=== PATIENT | male | born 2000 | race Caucasian/White ===

== ENCOUNTER 2021-07-11 11:48 | Emergency (ER) | payer OTHER, SELFPAY ==
[2021-07-11 12:16] VITALS: BP 109/63; PULSE 85; RESP 18; TEMP 37.3; O2SAT 100
--- NOTE | 2021-07-11 12:34 | ED.URI ---
HPI - URI/Sore Throat General Chief Complaint: Upper Respiratory Infection Stated Complaint: runny nose,cough,vomitting Time Seen by Provider: 07/11/21 11:56 Source: patient Mode of arrival: ambulatory Limitations: no limitations History of Present Illness HPI Narrative: 20-year-old male presents to [facility] accompanied by his foster father with complaints of runny nose, headache, sore throat, dry cough and multiple episodes of vomiting over the past 3 to 4 days. Father reports that patient is on the autism spectrum. Patient's sisters recently had similar symptoms. Father denies fever, bites, chills, shortness of breath or wheezing. Patient is not COVID or influenza vaccine. MD elicited complaint: sore throat, rhinorrhea and nasal congestion Onset (ago): day(s) (3) Context: sick contacts Treatments prior to arrival: none Related Data Allergies Allergy/AdvReac Type Severity Reaction Status Date / Time No Known Allergies Allergy Verified 07/11/21 12:26 Review of Systems Constitutional: Constitutional: Denies chills, Denies fatigue, Denies fever(s) and Denies weakness ENT: Denies dysphagia, Denies dizziness, Denies epistaxis, Reports nasal congestion and Reports sore throat Respiratory: Respiratory: Denies chest congestion, Reports cough, Denies dyspnea and Denies wheezing Gastrointestinal: Gastrointestinal: Denies abdominal pain, Denies constipation, Denies diarrhea, Reports nausea and Reports vomiting Integumentary/Breasts: Skin/Breast: Denies rash PMFSH Past Medical History Medical History (Updated 07/11/21 @ 12:45 by Mary Mccord APRN) Autism Comments At time of signature, I agree with nursing past medical, surgical, social and family history. There is no relevant family history pertinent to the presenting complaint. Exam Const: General: no acute distress and alert Nutritional Appearance: well nourished Orientation/consciousness: patient oriented x3 HENMT: Ears: external ears normal and TM's normal bilaterally General nose exam: Nasal discharge present clear bilateral Face and sinus: normal facial exam and sinuses nontender Mouth: Yes Normal oral and palatal mucosa present, Yes lip normal and Yes moist mucous membranes Throat: uvula midline Other: Mild erythema noted to posterior pharynx. No swelling noted to tonsils. No peritonsillar abscess noted. Eyes: Pupils: Equal, round and reactive pupils present Neck: Neck: normal visual inspection Chest: Chest palpation & inspection: normal inspection of the chest Resp: Effort & Inspection: normal respiratory effort, not labored and not tachypneic Auscultation: clear to auscultation bilaterally Cardio: Rate: regular rate, not bradycardic and not tachycardic Rhythm: regular rhythm GI: Inspection: non-distended GI Palp: Yes Soft to palpation, No Tenderness to palpation present (GI) and No Guarding due to palpation present (GI) Back/Spine/Pelvis: Back: no CVA tenderness Skin: General skin exam: normal color, no jaundice and no pallor Rashes: no rashes Wounds: no wounds Neuro: General: patient oriented x3 and moves all extremities Speech: normal speech Psych: Appearance: grossly normal Affect: normal affect Attitude: cooperative Course Course Level of Care: Express Care Visit Vital Signs Vital signs: Vital Signs Temperature 37.3 C 07/11/21 12:16 Pulse Rate 85 07/11/21 12:16 Respiratory Rate 18 07/11/21 12:16 Blood Pressure 109/63 07/11/21 12:16 Pulse Oximetry 100 07/11/21 12:16 Temperature 37.3 C 07/11/21 12:16 Pulse Rate 85 07/11/21 12:16 Respiratory Rate 18 07/11/21 12:16 Blood Pressure 109/63 07/11/21 12:16 Pulse Oximetry 100 07/11/21 12:16 MDM - URI/Sore Throat MDM Narrative Medical decision making narrative: Discussed negative COVID results and positive strep results with patient and father. They agree to have patient take Amoxil as prescribed. They agreed to have patient alternate Motrin
== END 2021-07-11 12:48 | disposition home or self-care (01) ==
PROVIDERS: Emergency Provider Nurse Practitioner Family
DX: J02.0 Streptococcal pharyngitis (principal); Z20.822 Contact with and (suspected) exposure to COVID-19; F84.0 Autistic disorder
CPT/HCPCS: 87426; 87880; 99213; C9803; G0463